=== PATIENT | female | born 1930 | race Caucasian/White ===

== ENCOUNTER 2018-02-17 07:49 | Day surgery (SDC) | payer MEDICARE ==
[~2018-02-17] VITALS: Ht 160 cm; Wt 53.6 kg
[~2018-02-17 07:49] MED LIST: AMIO200T57 PO; ATEN25TA PO; CLIN300C85 PO; CLOP75TA35 PO; LANS30CA56 PO; MAGN400C PO; NITR0.4T SL; VIT D PO
[2018-02-17] MEDS ORDERED: MIDAZolam 5mg/5ml vial ONE (08:01)
[2018-02-17] MEDS ORDERED: fentaNYL/PF 50MCG/1 ML 2ML syringe ONE (08:01)
[2018-02-17 08:02] VITALS: BP 132/94
[2018-02-17] MEDS ORDERED: OMEG-42 PO (08:21)
[2018-02-17] MEDS ORDERED: GARL1TAB2 (08:22)
[2018-02-17] MEDS ORDERED: VITE1000C PO (08:22)
[2018-02-17] MEDS ORDERED: LEVO88TA2 PO (08:23)
[2018-02-17] MEDS ORDERED: VITA1CAP PO (08:23)
[2018-02-17 09:25] VITALS: BP 116/71
[2018-02-17 09:35] VITALS: BP 125/73
[2018-02-17 09:45] VITALS: BP 119/73
== END 2018-02-17 10:14 | disposition home or self-care (01) ==
LOC: GI LAB 07:49
PROVIDERS: ATTEND Internal Medicine Gastroenterology
DX: K64.8 Other hemorrhoids (principal); C20 Malignant neoplasm of rectum; K57.30 Diverticulosis of large intestine without perforation or abscess without bleeding; M19.042 Primary osteoarthritis, left hand; M19.041 Primary osteoarthritis, right hand; M17.0 Bilateral primary osteoarthritis of knee; Z86.010 Personal history of colon polyps; Z88.0 Allergy status to penicillin; Z88.2 Allergy status to sulfonamides; Z95.5 Presence of coronary angioplasty implant and graft; Z95.0 Presence of cardiac pacemaker; Z96.641 Presence of right artificial hip joint; Z85.828 Personal history of other malignant neoplasm of skin; Z79.899 Other long term (current) drug therapy; Z98.890 Other specified postprocedural states
CPT/HCPCS: 45331; 45335; G0500; J2250; J3010; J7030; 88305; A4620